=== PATIENT | female | born 1975 | race Caucasian/White ===

== ENCOUNTER → 2020-10-17 | Outpatient (CLI) | payer OTHER | LOC: KOH-I 15:57 | DX: M25.571 Pain in right ankle and joints of right foot (principal) | CPT/HCPCS: 73610; 73630 ==

== ENCOUNTER → 2021-07-01 | Day surgery (SDC) | payer BC ==
[~2021-07-01] MED LIST: ALPRAZOLAM0.5 MG PO; BUTALB-ACETAMI1 EAC1 PO; CRESTOR5 MG PO; QULIPTA60 MG PO; RESTORIL 30 MG30 MG GT; ROBAXIN 750 MG750 MG GT; VIIBRYD40 MG PO; [UNRECOGNIZED DRUG - OTHER] TP; [UNRECOGNIZED DRUG - REMARK] PO
== END | disposition home or self-care (01) ==
LOC: OR 06:23
DX: Z12.11 Encounter for screening for malignant neoplasm of colon (principal); K29.50 Unspecified chronic gastritis without bleeding; K31.A11 Gastric intestinal metaplasia without dysplasia, involving the antrum; K21.9 Gastro-esophageal reflux disease without esophagitis; E78.5 Hyperlipidemia, unspecified; F41.9 Anxiety disorder, unspecified; F32.A Depression, unspecified; E66.9 Obesity, unspecified; Z68.33 Body mass index [BMI] 33.0-33.9, adult; Z88.1 Allergy status to other antibiotic agents; Z88.2 Allergy status to sulfonamides; Z79.899 Other long term (current) drug therapy; Z90.49 Acquired absence of other specified parts of digestive tract
CPT/HCPCS: 43239; G0121; 84703; J2704; J7120